=== PATIENT | female | born 1970 | race Caucasian/White ===

== ENCOUNTER 2022-11-28 19:37 | Emergency (ER) | payer SELFPAY ==
[~2022-11-28] VITALS: Ht 152.4 cm; Wt 66.0 kg
[2022-11-29 00:45] VITALS: BP 170/62
[2022-11-29] MEDS ORDERED: IBUPROFEN 600MG TABLET PO ONE (00:45)
[2022-11-29] MEDS ORDERED: BACITRACIN ZINC OINT UDPKT TOP ONE (01:00)
[2022-11-29] MEDS ORDERED: LIDOCAINE HCL/PF 1% 10 MG/ML 5ML VIAL INFIL ONE (01:00)
[2022-11-29] MEDS ORDERED: IBUP-2029 PO (02:39)
== END 2022-11-29 03:20 | disposition home or self-care (01) ==
LOC: ER 19:37
DX: S01.91XA Laceration without foreign body of unspecified part of head, initial encounter (principal); M25.551 Pain in right hip; Z98.890 Other specified postprocedural states; W10.0XXA Fall (on)(from) escalator, initial encounter; Y93.89 Activity, other specified; Y92.89 Other specified places as the place of occurrence of the external cause; Y99.8 Other external cause status
CPT/HCPCS: 12001; 73502; 99283; Z7610